=== PATIENT | male | born 1970 | race Caucasian/White ===

== ENCOUNTER 2020-06-08 00:55 | Inpatient (IN) | payer BC ==
[~2020-06-08] VITALS: Ht 182.9 cm; Wt 108.9 kg
[~2020-06-08 00:55] MED LIST: ALPRAZOLAM0.5 MG PO; ASPIRIN CHEWABL81 MG PO; CLINDAMYCIN PO; COLACE 100MG C100 MG PO; FISH OIL 1,0001 EAC1 PO; FISH OIL 1,0001 EACH PO; FORTAZ; GLUCOPHAGE1000 MG PO; LIPITOR40 MG PO; METFORMIN HCL1000 MG PO; NEURONTIN 300300 MG PO; NORCO 7.5-3251 EACH PO; PAXIL40 MG PO; ZESTRIL5 MG PO; ZOFRAN 4 MG TAB4 MG PO; ZOFRAN4 MG PO
[2020-06-08 03:54] LABS: HEMOGLOBIN 12.1 gm/dl (14.0-17.5); RED BLOOD COUNT 4.3 M/UL (4.20-5.50)
[2020-06-08] MEDS ORDERED: CREON DR 36,001 EACH PO ×2 (09:41)
[2020-06-08] MEDS ORDERED: PROTONIX40 MG PO (09:41)
[2020-06-08] MEDS ORDERED: MOTEGRITY2 MG PO (09:42)
[2020-06-08] MEDS ORDERED: LANTUS SOL100 UNIT/1 SC (09:45)
[2020-06-08] MEDS ORDERED: VITAMIN D250 MCG PO (09:47)
[2020-06-08] MEDS ORDERED: TYLENOL EXTRA500 MG PO (09:48)
[2020-06-08] MEDS ORDERED: HUMALOG 10100 UNITS/ SC (21:27)
[2020-06-09 06:49] LABS: RED BLOOD COUNT 4.12 M/UL (4.20-5.50); WHITE BLOOD COUNT 6.1 K/UL (4.5-11.0)
[2020-06-10 06:16] LABS: BUN/CREATININE RATIO 19 (0-10)
[2020-06-10] MEDS ORDERED: LEVOFLOXACIN750 MG PO (12:35)
[2020-06-10] MEDS ORDERED: MUPIROCIN30 GM TP (12:35)
== END 2020-06-10 13:30 | disposition home or self-care (01) | DRG 623 ==
LOC: ER1 00:55 → CDU 05:23 → MED SURG 4 05:23
PROVIDERS: Internal Medicine; Physician Assistant; ADMIT Internal Medicine Infectious Disease
PROC: 0JBR0ZZ Excision of Left Foot Subcutaneous Tissue and Fascia, Open Approach (ICD-10-PCS; principal; 2020-06-08)
DX: E11.628 Type 2 diabetes mellitus with other skin complications (principal); L03.116 Cellulitis of left lower limb; C82.90 Follicular lymphoma, unspecified, unspecified site; L02.416 Cutaneous abscess of left lower limb; Z20.822 Contact with and (suspected) exposure to COVID-19; E11.621 Type 2 diabetes mellitus with foot ulcer; E11.22 Type 2 diabetes mellitus with diabetic chronic kidney disease; N18.30 Chronic kidney disease, stage 3 unspecified; I12.9 Hypertensive chronic kidney disease with stage 1 through stage 4 chronic kidney disease, or unspecified chronic kidney disease; E11.65 Type 2 diabetes mellitus with hyperglycemia; F41.9 Anxiety disorder, unspecified; F32.9 Major depressive disorder, single episode, unspecified; E11.42 Type 2 diabetes mellitus with diabetic polyneuropathy; E78.5 Hyperlipidemia, unspecified; Z90.49 Acquired absence of other specified parts of digestive tract; Z79.4 Long term (current) use of insulin
CPT/HCPCS: 36415; 73610; 73630; 80048; 80053; 80202; 82962; 83605; 85025; 85652; 86140; 87040; 87070; 87205; 96365; 96375; 99284; A6212; J1335; J1650; J2270; J2543; J3370; J7030; J7070; U0002

== ENCOUNTER → 2020-06-23 | Outpatient (CLI) | payer BC ==
[~2020-06-23] MED LIST changes: +CREON DR 36,001 EACH PO; +HUMALOG 10100 UNITS/ SC; +LANTUS SOL100 UNIT/1 SC; +LEVOFLOXACIN750 MG PO; +MOTEGRITY2 MG PO; +MUPIROCIN30 GM TP; +PROTONIX40 MG PO; +TYLENOL EXTRA500 MG PO; +VITAMIN D250 MCG PO
[2020-06-23 08:09] LABS: HEMOGLOBIN 13.1 gm/dl (14.0-17.5); RED BLOOD COUNT 4.54 M/UL (4.20-5.50); WHITE BLOOD COUNT 6.1 K/UL (4.5-11.0)
[2020-06-23 08:40] LABS: BUN/CREATININE RATIO 15 (0-10)
== END ==
LOC: CT 05-26 15:30
PROVIDERS: Internal Medicine Hematology & Oncology
DX: R59.0 Localized enlarged lymph nodes (principal); C82.19 Follicular lymphoma grade II, extranodal and solid organ sites
CPT/HCPCS: 36415; 71260; 80053; 83615; 85027; Q9967

== ENCOUNTER → 2020-07-21 | Outpatient (CLI) | payer BC | LOC: DTC 11:18 | DX: E11.8 Type 2 diabetes mellitus with unspecified complications (principal); E66.09 Other obesity due to excess calories; Z68.33 Body mass index [BMI] 33.0-33.9, adult | CPT/HCPCS: G0109 ==

== ENCOUNTER 2020-09-19 12:17 | Emergency (ER) | payer BC ==
[2020-09-19 13:38] LABS: HEMOGLOBIN 14.4 gm/dl (14.0-17.5); RED BLOOD COUNT 4.9 M/UL (4.20-5.50); WHITE BLOOD COUNT 5.8 K/UL (4.5-11.0)
[2020-09-19 13:58] LABS: BUN/CREATININE RATIO 14 (0-10)
== END 2020-09-19 22:29 | disposition home or self-care (01) ==
LOC: ER1 12:17
PROVIDERS: Physician Assistant
DX: R55 Syncope and collapse (principal); E86.0 Dehydration; N28.9 Disorder of kidney and ureter, unspecified; E78.5 Hyperlipidemia, unspecified; E11.40 Type 2 diabetes mellitus with diabetic neuropathy, unspecified; Z90.49 Acquired absence of other specified parts of digestive tract
CPT/HCPCS: 70450; 71045; 80053; 81001; 82550; 82553; 83874; 84484; 85025; 93005; 99284

== ENCOUNTER → 2021-01-09 | Outpatient (CLI) | payer BC ==
[2021-01-09 07:47] LABS: HEMOGLOBIN 13.8 gm/dl (14.0-17.5); RED BLOOD COUNT 4.79 M/UL (4.20-5.50); WHITE BLOOD COUNT 6.3 K/UL (4.5-11.0)
[2021-01-09 08:16] LABS: BUN/CREATININE RATIO 18 (0-10)
== END ==
LOC: CT 10-26 08:00
PROVIDERS: Internal Medicine Hematology & Oncology
DX: R59.0 Localized enlarged lymph nodes (principal); C82.19 Follicular lymphoma grade II, extranodal and solid organ sites; R91.1 Solitary pulmonary nodule
CPT/HCPCS: 36415; 70491; 71260; 80053; 83615; 85027; Q9967

== ENCOUNTER 2021-04-02 21:24 | Emergency (ER) | payer BC ==
[2021-04-02 22:42] LABS: HEMOGLOBIN 14.1 gm/dl (14.0-17.5); RED BLOOD COUNT 4.81 M/UL (4.20-5.50)
[2021-04-03] MEDS ORDERED: PERCOCET 5/325 T1 EA PO (03:33)
== END 2021-04-03 03:50 | disposition home or self-care (01) ==
LOC: ER1 21:24
PROVIDERS: Family Medicine
DX: R10.813 Right lower quadrant abdominal tenderness (principal); R59.0 Localized enlarged lymph nodes; E11.40 Type 2 diabetes mellitus with diabetic neuropathy, unspecified; E78.5 Hyperlipidemia, unspecified; Z85.858 Personal history of malignant neoplasm of other endocrine glands
CPT/HCPCS: 80053; 81001; 85025; 85652; 86140; 87086; 99284; Q9967

== ENCOUNTER 2021-06-29 03:30 | Emergency (ER) | payer BC ==
[~2021-06-29 03:30] MED LIST changes: +PERCOCET 5/325 T1 EA PO
[2021-06-29] MEDS ORDERED: NORFLEX 100 MG100 MG PO (04:56)
[2021-06-29] MEDS ORDERED: IBUPROFEN600 MG PO (04:56)
== END 2021-06-29 05:12 | disposition home or self-care (01) ==
LOC: ER1 03:30
DX: M54.12 Radiculopathy, cervical region (principal); E11.9 Type 2 diabetes mellitus without complications; E78.5 Hyperlipidemia, unspecified; Z85.72 Personal history of non-Hodgkin lymphomas; Z79.4 Long term (current) use of insulin; Z90.49 Acquired absence of other specified parts of digestive tract
CPT/HCPCS: 72125; 73030; 96374; 99284; J1885

== ENCOUNTER → 2021-10-12 | Outpatient (CLI) | payer OTHER ==
[~2021-10-12] MED LIST changes: +IBUPROFEN600 MG PO; +NORFLEX 100 MG100 MG PO
[2021-10-12 12:26] LABS: HEMOGLOBIN 13.6 gm/dl (14.0-17.5); RED BLOOD COUNT 4.66 M/UL (4.20-5.50); WHITE BLOOD COUNT 6.6 K/UL (4.5-11.0)
== END ==
LOC: CT 10-05 11:30
PROVIDERS: Internal Medicine Hematology & Oncology
DX: C82.19 Follicular lymphoma grade II, extranodal and solid organ sites (principal); R59.0 Localized enlarged lymph nodes
CPT/HCPCS: 36415; 70491; 71260; 80053; 83615; 85025; Q9967

== ENCOUNTER → 2021-10-19 | Outpatient (CLI) | payer OTHER | LOC: CATH 10:00 → EDSTATUS 10:00 → CATH 10:38 | DX: I95.1 Orthostatic hypotension (principal) ==